=== PATIENT | female | born 1995 | race Caucasian/White ===

== ENCOUNTER 2024-11-24 16:04 | Emergency (ER) | payer OTHER ==
[~2024-11-24] VITALS: Ht 157.5 cm; Wt 60.9 kg
[2024-11-24] MEDS ORDERED: ZOLO100T PO (16:14)
[2024-11-24] MEDS ORDERED: WELLTAB38 PO (16:14)
[2024-11-24] MEDS ORDERED: VYVA40CA3 PO (16:14)
[2024-11-24] MEDS ORDERED: JUNE1TAB PO (16:14)
[2024-11-24 18:54] VITALS: BP 121/72; TEMP 97.5; O2SAT 100
== END 2024-11-24 18:56 | disposition home or self-care (01) ==
LOC: M ED 16:04
DX: S46.811A Strain of other muscles, fascia and tendons at shoulder and upper arm level, right arm, initial encounter (principal); V49.40XA Driver injured in collision with unspecified motor vehicles in traffic accident, initial encounter; F41.9 Anxiety disorder, unspecified; F90.9 Attention-deficit hyperactivity disorder, unspecified type; Y92.410 Unspecified street and highway as the place of occurrence of the external cause; Y93.89 Activity, other specified; Y99.9 Unspecified external cause status; Z79.899 Other long term (current) drug therapy